=== PATIENT | female | born 1985 | race Two or more races ===

== ENCOUNTER 2020-05-19 20:35 | Emergency (ER) | payer OTHER ==
[~2020-05-19] VITALS: Ht 162.6 cm; Wt 86.2 kg
[2020-05-19 21:00] VITALS: BP 135/89
[2020-05-19] MEDS ORDERED: IBUPROFEN 800 MG TAB PO ONE ×2 (22:30→22:45)
== END 2020-05-19 22:47 | disposition home or self-care (01) ==
LOC: ER 20:35
DX: S16.1XXA Strain of muscle, fascia and tendon at neck level, initial encounter (principal); R51.9 Headache, unspecified; X58.XXXA Exposure to other specified factors, initial encounter; Y93.89 Activity, other specified; Y92.89 Other specified places as the place of occurrence of the external cause; Y99.8 Other external cause status
CPT/HCPCS: 70450; 72125